=== PATIENT | female | born 1980 | race Hispanic/Latino ===

== ENCOUNTER 2020-05-29 12:33 | Outpatient (CLI) | payer OTHER ==
[2020-05-29 14:32] LABS: Hemoglobin 12.4 g/dL (12.0-15.5); Mean Corpuscular Hemoglobin 29.5 pg (27.0-33.0); Mean Corpuscular Volume 92.1 fl (81.6-98.3); Platelet Count 314 10x3/uL (150-450); RBC Distribution Width 13.7 % (11.5-14.5); White Blood Cell (WBC) Count 8.9 10x3/uL (3.5-10.5)
[2020-05-29 14:33] LABS: Anion Gap 14 mmol/L (10-20); BUN (Urea Nitrogen) 6 mg/dL (7.0-18.7); Calc. Creatinine Clearance 0 mL/min (70-130); Calcium 8.2 mg/dL (7.8-10.44); Carbon Dioxide 23 mmol/L (22-29); Chloride 105 mmol/L (98-107); Glucose 93 mg/dL (70-105); Potassium 4.4 mmol/L (3.5-5.1); Sodium 138 mmol/L (136-145)
[2020-05-29 20:35] LABS: Hemoglobin A1c 5.2 % (4.0-6.0)
[2020-05-30 04:28] LABS: SARS-CoV-2 PCR by NAA Not Detected (NotDetected)
== END 2020-05-29 12:34 | disposition home or self-care (01) ==
LOC: CSHLAB 12:33
PROVIDERS: ATTEND Otolaryngology Plastic Surgery within the Head & Neck
DX: Z01.818 Encounter for other preprocedural examination (principal); Z20.822 Contact with and (suspected) exposure to COVID-19
CPT/HCPCS: 80048; 83036; 85027; 87081; 87635; 93005; 93010; U0003; U0005

== ENCOUNTER 2020-06-03 05:37 | Observation (INO) | payer OTHER ==
[2020-05-30 12:48] VITALS: BMI 38.0
[2020-06-03] MEDS ORDERED: Acetaminophen 500 MG TAB ONE (05:57)
[2020-06-03] MEDS ORDERED: CeleCOXIB 100 MG CAP ONE (05:57)
[2020-06-03] MEDS ORDERED: Gabapentin 300 MG CAP ONE (05:57)
[2020-06-03] MEDS ORDERED: Lidocaine 1% MPF 2 ML VIAL ONE (05:58)
[2020-06-03] MEDS ORDERED: EPINEPHrine 1 MG/ML AMP ONE ×2 (06:21→06:45)
[2020-06-03] MEDS ORDERED: Ketorolac Tromethamine 30 MG/ML VIAL ONE (06:21)
[2020-06-03] MEDS ORDERED: Ropivacaine 0.2% HCl/PF 40 ML ONE (06:22)
[2020-06-03] MEDS ORDERED: Tranexamic Acid 1,000 MG/10 ML VIAL ONE (06:22)
[2020-06-03] MEDS ORDERED: Lidocaine 1% w/Epinephrine 1:100K 20 ML VIAL ONE (06:22)
[2020-06-03] MEDS ORDERED: Neomycin-Polymyxin 1 ML AMP ONE (06:23)
[2020-06-03] MEDS ORDERED: Midazolam HCl 2 mg/2 ml Vial ONE (06:41)
[2020-06-03] MEDS ORDERED: Fentanyl 100 MCG/2 ML VIAL ONE (06:42)
[2020-06-03] MEDS ORDERED: Bupivacaine 0.25% HCL 30 ML VIAL ONE (06:43)
[2020-06-03] MEDS ORDERED: Ropivacaine 0.5% HCl/PF (150 MG/30 ML VIAL) ONE (06:45)
[2020-06-03] MEDS ORDERED: Ropivacaine 0.2% HCl/PF 20 ML ONE (06:45)
[2020-06-03] MEDS ORDERED: Dexamethasone 4 mg/ml Vial ONE (06:45)
[2020-06-03] MEDS ORDERED: Zolpidem Tartrate 5 MG TAB PO PRN (06:50)
[2020-06-03] MEDS ORDERED: Promethazine HCl 25 MG/ML VIAL IM PRN ×2 (06:50→09:45)
[2020-06-03] MEDS ORDERED: Acetaminophen 325 MG TAB PO PRN (06:50)
[2020-06-03] MEDS ORDERED: diphenhydrAMINE 25 MG CAP PO PRN (06:50)
[2020-06-03] MEDS ORDERED: Morphine 4 MG/ML VIAL SLOW IVP PRN (06:50)
[2020-06-03] MEDS ORDERED: Ondansetron PF 4 MG/2 ML Vial IVP PRN (06:50)
[2020-06-03] MEDS ORDERED: PROPOFOL 20 ML ONE (06:57)
[2020-06-03] MEDS ORDERED: Lidocaine 1% PF 5 ML VIAL ONE (06:58)
[2020-06-03] MEDS ORDERED: Levofloxacin 500 mg/D5W 100 ml Premix Bag ONE (07:10)
[2020-06-03] MEDS ORDERED: hydrALAZINE 20 MG/ML VIAL ONE (07:52)
[2020-06-03] MEDS ORDERED: Labetalol HCl 100 MG/20 ML VIAL ONE (07:52)
[2020-06-03] MEDS ORDERED: diphenhydrAMINE 50 MG/ML VIAL ONE (08:16)
[2020-06-03] MEDS ORDERED: Metoclopramide HCl 10 MG/2 ML VIAL ONE (08:16)
[2020-06-03] MEDS ORDERED: Ondansetron PF 4 MG/2 ML Vial ONE (08:16)
[2020-06-03] MEDS ORDERED: Meperidine HCl/PF 25 MG/ML VIAL SLOW IVP PRN (09:45)
[2020-06-03] MEDS ORDERED: Promethazine HCl 25 MG/ML VIAL SLOW IVP PRN (09:45)
[2020-06-03] MEDS ORDERED: HYDROmorphone 2 MG/ML VIAL SLOW IVP PRN (09:45)
[2020-06-03] MEDS ORDERED: Midazolam HCl 2 mg/2 ml Vial SLOW IVP PRN (09:47)
[2020-06-03] MEDS ORDERED: Albuterol Sulfate 2.5 mg/3 ml Neb NEB PRN (13:04)
[2020-06-03] MEDS: Senokot S 8.6-50 MG TAB PO SCH ×2 (13:05→20:39)
[2020-06-03] MEDS: Multivitamin W/ Minerals 1 TAB PO SCH (13:05)
[2020-06-03] MEDS: Sodium Chloride 0.9% 1,000 ML IV SCH ×2 (13:05→16:30)
[2020-06-03] MEDS: Aspirin 81 mg Enteric Coated Tablet PO SCH ×2 (13:05→20:39)
[2020-06-03] MEDS: Ketorolac Tromethamine 30 MG/ML VIAL IVP SCH ×2 (13:28→21:36)
[2020-06-03] MEDS: HYDROcodone/Acetaminophen 10/325 mg Tablet PO PRN ×3 (13:33→20:34)
[2020-06-03] MEDS ORDERED: Vancomycin HCl 1 GM in Sodium Chloride 0.9% 250 ML 250 ML IVPB SCH (21:00)
[2020-06-03] MEDS ORDERED: Montelukast Sodium 10 mg Tablet PO SCH (21:00)
[2020-06-04] MEDS: HYDROcodone/Acetaminophen 10/325 mg Tablet PO PRN ×4 (00:33→12:41)
[2020-06-04] MEDS: Sodium Chloride 0.9% 1,000 ML IV SCH (03:57)
[2020-06-04 05:46] LABS: Mean Corpuscular HGB CONC 32.5 g/dL (32.0-36.0); Mean Corpuscular Hemoglobin 29.6 pg (27.0-33.0); Mean Corpuscular Volume 91.1 fl (81.6-98.3); Platelet Count 268 10x3/uL (150-450); RBC Distribution Width 13.7 % (11.5-14.5); Red Blood Cell (RBC) Count 3.71 10x6/uL (3.90-5.03); White Blood Cell (WBC) Count 11.5 10x3/uL (3.5-10.5)
[2020-06-04] MEDS: Ketorolac Tromethamine 30 MG/ML VIAL IVP SCH ×2 (06:02→06:15)
[2020-06-04] MEDS: Multivitamin W/ Minerals 1 TAB PO SCH (08:13)
[2020-06-04] MEDS: Senokot S 8.6-50 MG TAB PO SCH (08:15)
[2020-06-04] MEDS: Aspirin 81 mg Enteric Coated Tablet PO SCH (08:15)
[2020-06-04 08:36] VITALS: BP 136/83; TEMP 97.6
[2020-06-04] MEDS ORDERED: Ferrous Gluconate 324 MG TAB PO SCH (09:00)
[2020-06-06 16:15] LABS: Fungus Stain Final report (.)
[2020-07-01 13:40] LABS: Fungus Culture Final report (.)
== END 2020-06-04 13:25 | disposition home or self-care (01) ==
LOC: CSHSDC 05:37 → CSHTELE 12:35
PROVIDERS: ADMIT Orthopaedic Surgery; ATTEND Orthopaedic Surgery
PROC: 0SRD0J9 Replacement of Left Knee Joint with Synthetic Substitute, Cemented, Open Approach (ICD-10-PCS; principal; 2020-06-03)
DX: M17.32 Unilateral post-traumatic osteoarthritis, left knee (principal)
CPT/HCPCS: 36416; 85027; 87070; 87102; 87205; 87206; 96374; 96375; 96376; G0378; J0171; J0360; J0735; J1100; J1200; J1885; J1956; J2250; J2405; J2704; J2765; J2795; J3010; J3370; J3490; J7050; S0020

== ENCOUNTER 2021-07-19 22:05 | Emergency (ER) | payer OTHER ==
[2021-07-19] MEDS ORDERED: Lorazepam 1 MG TAB ONE (22:33)
[2021-07-19] MEDS ORDERED: Dexamethasone 10 MG/ML VIAL ONE (23:01)
== END 2021-07-19 23:26 | disposition home or self-care (01) ==
LOC: CSHERS 22:05
DX: J45.909 Unspecified asthma, uncomplicated (principal); F41.9 Anxiety disorder, unspecified; F17.210 Nicotine dependence, cigarettes, uncomplicated
CPT/HCPCS: 71045; 93005; J1100; J7620

== ENCOUNTER 2021-07-22 20:35 | Emergency (ER) | payer OTHER ==
[2021-07-22] MEDS ORDERED: Albuterol Sulfate 2.5 mg/0.5 ml Neb ONE (20:48)
[2021-07-22] MEDS ORDERED: Magnesium 2 GM/50 ML BAG (IN WATER) ONE (20:50)
[2021-07-22 21:06] LABS: #Basophils 0.1 10x3/uL (0.0-0.2); #Monocytes 0.9 10x3/uL (0.0-1.1); #Neutrophils 7.7 10x3/uL (1.5-8.4); %Basophils 0.7 % (0.0-2.0); %Eosinophils 8.2 % (0.0-6.0); %Lymphocytes 16.4 % (18.0-47.0); %Monocytes 7.4 % (0.0-10.0); %Neutrophils 66.3 % (40.0-75.0); Hemoglobin 12.7 g/dL (12.0-15.5); Mean Corpuscular HGB CONC 32.8 g/dL (32.0-36.0); Mean Corpuscular Hemoglobin 27.8 pg (27.0-33.0); Mean Corpuscular Volume 84.7 fl (81.6-98.3); Mean Platelet Volume 10.3 fl (7.4-10.4); Platelet Count 345 10x3/uL (150-450); RBC Distribution Width 13.4 % (11.5-14.5); Red Blood Cell (RBC) Count 4.57 10x6/uL (3.90-5.03); White Blood Cell (WBC) Count 11.6 10x3/uL (3.5-10.5)
[2021-07-22] MEDS ORDERED: Lorazepam 2 MG/ML VIAL ONE (21:17)
[2021-07-22] MEDS ORDERED: methylPREDNISolone Sod Succ/PF 125 MG/2 ML VIAL ONE (21:17)
[2021-07-22 21:19] LABS: ALT (SGPT) 11 U/L (8-55); AST (SGOT) 10 U/L (5-34); Albumin 4.1 g/dL (3.5-5.0); Alkaline Phosphatase 99 U/L (40-110); Anion Gap 16 mmol/L (10-20); BUN (Urea Nitrogen) 8 mg/dL (7.0-18.7); Bilirubin, Total 0.1 mg/dL (0.2-1.2); Calc. Creatinine Clearance 0 mL/min (70-130); Calcium 8.8 mg/dL (7.8-10.44); Carbon Dioxide 24 mmol/L (22-29); Chloride 105 mmol/L (98-107); Globulin 2.6 g/dL (2.4-3.5); Glucose 89 mg/dL (70-105); Potassium 4.2 mmol/L (3.5-5.1); Protein, Total 6.7 g/dL (6.0-8.3); Sodium 141 mmol/L (136-145)
== END 2021-07-22 22:34 | disposition home or self-care (01) ==
LOC: CSHERS 20:35
DX: J45.901 Unspecified asthma with (acute) exacerbation (principal); F17.210 Nicotine dependence, cigarettes, uncomplicated
CPT/HCPCS: 71045; 80053; 83880; 84484; 85025; 85379; 93005; 96365; 96366; 96375; J2060; J2930; J3475; J7611; J7620